=== PATIENT | male | born 2000 | race Caucasian/White ===

== ENCOUNTER 2023-09-19 10:17 | Outpatient (REF) | payer MEDICAID, SELFPAY ==
[2023-09-19 14:10] LABS: MANUAL DIFF FLAG NO
[2023-09-19 14:18] LABS: Basophils Percent Auto 0.7 % (0-2); Eosinophils Absolute Auto 0.2 X10*3/uL (0.0-0.4); Eosinophils Percent Auto 4.4 % (0-4); Hematocrit 46.5 % (42.0-52.0); Hemoglobin 15.2 g/dl (14.0-18.0); Imm Gran Abs Auto 0.02 X10*3/uL (0.00-0.03); Imm Gran Pct Auto 0.4 % (0.0-0.4); Lymphocytes Absolute Auto 1.1 X10*3/uL (1.2-4.9); Lymphocytes Percent Auto 24.7 % (20-40); Mean Corpuscular HGB Conc 32.7 g/dl (31.0-36.0); Mean Corpuscular Volume 94.7 fL (80.0-98.0); Mean Platelet Volume 10.9 fL (9.4-12.4); Monocytes Absolute Auto 0.6 X10*3/uL (0.1-1.2); Monocytes Percent Auto 13.7 % (2-11); Neutrophils Absolute Auto 2.5 x10*3/uL (2.0-8.3); Neutrophils Percent Auto 56.1 % (45-73); Platelet Count 206 X10*3/uL (160-400); Red Blood Count 4.91 X10*6/uL (4.60-5.80); Red Cell Distribution Width 13.4 % (11.0-16.0); White Blood Count 4.5 X10*3/uL (4.8-10.8)
[2023-09-19 14:40] LABS: Alanine Aminotransferase 25 U/L (0-40); Albumin Level 4.6 g/dL (3.5-5.0); Alkaline Phosphatase 62 U/L (39-117); Anion Gap 12 (12-20); Aspartate Amino Transferase 29 U/L (5-37); Bilirubin Total 0.8 mg/dL (0.0-1.0); Blood Urea Nitrogen 15 mg/dL (9-16); Calcium 9.7 mg/dL (8.4-10.2); Carbon Dioxide 28 mmol/L (22-29); Chloride 103 mmol/L (96-108); Cholesterol 154 mg/dL (<200); Estimated Glomerular Filt Rate > 60; Glucose Random 92 mg/dL (60-115); HDL Cholesterol 34 mg/dL (>40); LDL Cholesterol Calculated 85 mg/dL (<100); Potassium 4.2 mmol/L (3.3-5.1); Sodium 139 mmol/L (135-145); Total Protein 7.3 g/dL (6.5-8.0); Triglycerides 176 mg/dL (<150)
== END 2023-09-19 10:18 | disposition home or self-care (01) ==
LOC: HO.CHCLDS 10:17
PROVIDERS: Visit Provider Internal Medicine
DX: E66.3 Overweight (principal)
CPT/HCPCS: 36415; 80053; 80061; 85025

== ENCOUNTER 2024-12-05 11:42 | Outpatient (REF) | payer MEDICAID, SELFPAY ==
--- OUTSIDE RECORDS SUMMARY | 2024-12-05 10:45 | XMS_ITS | Encounter Summary ---
Author Organization [employer] Address [address] [facility] 7 [place] [address] Care Team Providers Care Office Nurse Practitioner Name Role Phone Alin Hewitt MD Primary Care Prov ider Encounter Details Date Type Department Care Team ([facility] st Contact Info) Description 12/05/2024 10:45 AM EDT Office Visit [facility] MED & PEDS [address] [place] [address], [place] [phone] Alin Hewitt MD [address] [place] [address] Visit for annual health examination (Primary Dx); Elevated blood pressure reading Social History Tobacco Use Types Packs/Day Years Used Date Smoking Tobacco: Never Smokeless Tobacco: Never Alcohol Use Standard Drinks/Week Comments Never 0 (1 standard drink = 0.6 oz pur e alcohol) Depression Answer Date Recorded Patient Health Questionnaire-9 Score 0 09/19/2023 Patient Health Questionnaire-9 Score 0 09/19/2023 Last PHQ-9: Questionnaire Data Not on file 0 09/19/2023 Housing Stability Answer Date Recorded What is your housing situation today? I have jesika mesa 09/10/[address] you li ve. Do you have problems with any of the following? None of the above 09/10/2023 Food Insecurity Answer Date Recorded Within the past 12 months, y ou worried that your food would run out before you got money to buy more: Never True 09/10/2023 Within the past 12 months,th e food you bought just didn't last and you didn't have enough money to get more: Never True 03/2023 Transportation Answer Date Recorded In the past 12 months, has l ack of transportation kept you from medical appts, meetings, work or from getting things needed for daily living? No 09/10/2023 Utilities Answer Date Recorded In the past 12 months, has t he electric, gas, oil or water company threatened to shut off services in your home? No 09/10/2023 Depression Answer Date Recorded Patient Health Questionnaire-2 Score 0 09/19/2023 Internet Access Answer Date Recorded Internet Access Q1 Yes 11/12/2023 Internet Access Q2 Not on file 11/12/2023 Sex and Gender Information Value Date Recorded Sex Assigned at Male 01/09/2022 10:37 AM EDT Legal Sex Male 10:37 AM EDT Gender Identity Male 01/09/2022 10:37 AM EDT Sexual Orientation Straight 01/09/2022 10 :37 AM EDT documented as of this encounter Last Filed Vital Signs Vital Sign Reading Time Taken Comments Blood Pressure 145/86 12/05/2024 10:54 AM EDT Pulse 60 12/05/2024 10:54 AM EDT Temperature 37.2 C (99 F) 12/05/2024 10:54 AM EDT Respiratory Rate 20 12/05/2024 10:54 AM EDT Oxygen Saturation - - Inhaled Oxygen Concentration - - Weight 84.8 kg (187 lb) 12/05/2024 10:54 AM EDT Height 174 cm (5' 8.5 ) 12/05/2024 10:54 AM EDT Body Mass Index 28.02 12/05/2024 10:54 AM EDT documented in this encounter Progress Notes * Cecilia Greer MA - 12/05/2024 10:45 AM EDT * Alin López MD - 12/05/2024 10:45 AM EDT Subjective Patient ID: J Luis Blunt is a 24 y.o. male who presents for No chief complaint on file.. HPI Patient was seen on office for a physical examination Review of Systems Constitutional: Negative for chills, fatigue and fever. Respiratory: Negative for cough and shortness of breath. Cardiovascular: Negative for chest pain and palpitations. Objective Physical Exam Constitutional: Appearance: Normal appearance. Cardiovascular: Rate and Rhythm: Normal rate. Heart sounds: No murmur heard. Pulmonary: Effort: Pulmonary effort is normal. No respiratory distress. Breath sounds: No stridor. No wheezing or rhonchi. Abdominal: General: Abdomen is flat. There is no distension. Palpations: There is no mass. Tenderness: There is no abdominal tenderness. Hernia: No hernia is present. Neurological: General: No focal deficit present. Mental Status: He is alert and oriented to person, place, and time. Psychiatric: Mood and Affect: Mood normal. Behavior: Behavior normal. Assessment/Plan Problem List Items Addressed This Visit Visit for annual health examination - Primary Unremarkable, nbew labs will be ordered for further evaluation, incidentally found with elevated blood pressure, will follow up in 1 month Relevant Orders CBC auto differential Comprehensive Metabolic Panel Lipid Panel, Standard TSH W/Reflex to FT4 Chlamydia/N. Gonorrhoeae RNA, TMA, Vaginal Syphilis Screen Elevated blood pressure reading Will order blood pressure monitor, keep a low sodium diet and exercise as tolerated, follow up in 1month documented in this encounter Miscellaneous Notes * Assessment & Plan Note - Alin López MD - 12/05/2024 12:05 PM EDTAssociated Problem(s): Visit for annual health examination Unremarkable, nbew labs will be ordered for further evaluation, incidentally found with elevated blood pressure, will follow up in 1 month * Assessment & Plan Note - Alin López MD - 12/05/2024 12:04 PM EDTAssociated Problem(s): Elevated blood pressure reading Will order blood pressure monitor, keep a low sodium diet and exercise as tolerated, follow up in 1month documented in this encounter Plan of Treatment Scheduled Orders Name Type Priority Associated Diagnoses Orde r Schedule CBC auto differential Lab Routine Visit for annual health examination Expected: 12/05/2024 (Approximate), Expires: 12/05/2025 Comprehensive Metabolic Panel Lab Routine Visit for annual health examination Expected: 12/05/2024 (Approximate), Expires: 12/05/2025 Lipid Panel, Standard Lab Routine Visit for annual health examination Expected: 12/05/2024 (Approximate), Expires: 12/05/2025 TSH W/Reflex to FT4 Lab Routine Visit for annual health examination Expected: 12/05/2024 (Approximate), Expires: 12/05/2025 Chlamydia/N. Gonorrhoeae RNA, TMA, Vaginal Microbiology Routine Visit for annual health examination Ordered: 12/05/2024 Syphilis Screen Lab Routine Visit for annual health examination Expected: 12/05/2024, Expires: 12/05/2025 documented as of this encounter Visit Diagnoses Diagnosis Visit for annual health examination- Primary Elevated blood pressure reading Elevated blood pressure reading without diagnosis of hypertension documented in this encounter Additional Health Concerns Assessment Noted Time PHQ-9 Depression Total Score: 0 09/19/19 24 9:26 AM EDT documented as of this encounter Care Teams Office Nurse Practitioner Relationship Specialty Start Date End Date Alin Hewitt MD [address] [place] [id number] PCP - General Internal Medicine 06/07/20 documented as of this encounter
--- OUTSIDE RECORDS SUMMARY | 2024-12-05 13:37 | XMS_ITS | Encounter Summary ---
Author Organization [facility] Address [address] [place] [address] Care Team Providers Care Technology Risk Intern Name Role Phone Misbah Segal MD Primary Care Provider Gerda Castellanos MD Primary Care Pr ovider Unavailable [facility], Pcp Primary Care Provider Unavailabl e Encounter Details Date Type Department Care Team Description [facility] Medical Records [address] [place] [id number] Abstract, Provider Social History Tobacco Use Types Packs/Day Years Used Date Smoking Tobacco: Never Smokeless Tobacco: Never Alcohol Use Standard Drinks/Week Comments Not Asked 0 (1 standard drink = 0.6 oz pur e alcohol) Sex Assigned at Date Recorded Not on file documented as of this encounter Plan of Treatment Not on file documented as of this encounter Visit Diagnoses Not on filedocumented in this encounter Care Teams Technology Risk Intern Relationship Specialty Start Date End Date Misbah Segal MD PCP - General Pediatrics 05/27/15 12/03/17 Gerda Gonzalez MD PCP - General Pediatrics 12/04/17 05/27/18 [facility], Pcp PCP - General Internal Medicine 05/28/18 documented as of this encounter
--- OUTSIDE RECORDS SUMMARY | 2024-12-05 13:37 | XMS_ITS | Clinical Summary ---
Author Organization [employer] Address [address] [facility] [address] [place] [address] Care Team Providers Care Bereavement Program Coordinator Name Role Phone Alin Hewitt MD Primary Care Prov ider Allergies No known active allergies Medications Blood Pressure kit 1 kit Once per day. 1 kit 12/05/2024 Active Active Problems Problem Noted Date Diagnosed Date Elevated blood pressure reading 12/05/2024 Assessment & Plan (12/05/2024 12:04 PM EDT): Will order blood pressure monitor, keep a low sodium diet and exercise as tolerated, follow up in 1 month Orthostatic dizziness 10/09/2023 Assessment & Plan (10/09/2023 3:45 PM EDT): Josue seen at er 2 weeks after presenting with a episode of fainting/dizziness, workup was negative, he denied further episode, most likely related to lack of hydration and heat. Visit for annual health examination 09/19/2023 Assessment & Plan (12/05/2024 12:05 PM EDT): Unremarkable, nbew labs will be ordered for further evaluation, incidentally found with elevated blood pressure, will follow up in 1 month Assessment & Plan (09/19/2023 10:25 AM EDT): Physical examination was unremarkable, no heart murmurs, lungs were clear, no thyroid/neck lymphadenopathy. Skin examination done no suspected melanoma lesions Encounters Date Type Department Care Team Description 12/05/2024 10:45 AM EDT Office Visit [facility] MED & PEDS [address] [place] [address] Alin Hewitt MD Visit for annual health examination (Primary Dx); Elevated blood pressure reading 12/05/2024 Travel 11/28/2024 Travel 11/27/2024 Patient Outreach [facility] MEDICINE [address] [place] [address] Alin Hewitt MD Pre-visit Planning (Pre visit planning LVM ) from Last 3 Months Immunizations Immunization Administration Dates Next Due BCG 2001 DTaP 09/25/2006, 2,2001,09/11 HPV 9-Valent 09/06/2015 HPV, Quadrivalent 02/22/2015,04/22/2014 Hep B, Adolescent or Pediatric 09/25/2006,2006,2001 IPV 09/06/2015, 3,01/16/2002,11/12,2001 Influenza injectable quadriv alent preservative free 01/25/2023,01/17/2018 Influenza, IIV3, injectable 02/22/2015, 5 Influenza, live, intranasal 12/05/2012 Influenza, seasonal, injecta ble, preservative free 02/22/2015,04/22/2014 MMR 09/25/2006,05/19/2004 Measles 07/23/2002 Meningococcal B, Recombinant 07/25/2018 Meningococcal MCV4P ACYW-135 09/06/2015 Novel [id number], preservative-free 02/18/2009 PPD Test 08/12/2021 Tdap 09/06/2015 Varicella 09/25/2006,07/20/2006 Social History Tobacco Use Types Packs/Day Years Used Date Smoking Tobacco: Never Smokeless Tobacco: Never Tobacco Cessation:Counseling Given: Not Answered Alcohol Use Standard Drinks/Week Comments Never 0 [...] Orientation Straight 01/09/2022 10 :37 AM EDT Last Filed Vital Signs Vital Sign Reading [...] Mass Index 28.02 12/05/2024 10:54 AM EDT Plan of Treatment Health Maintenance Due Date Last Done Comments Alcohol/Substance Use Screening 2013 Family Planning (PISQ) 2016 Meningococcal B Vaccine (2 of 2 - Trumenba SCDM 2-dose series) 01/25/2019 07/25/2018 Pneumococcal Vaccine: Pediatrics (0 to 5 Years) and At-Risk Patients (6 to 49) Years (1 of 2 - PCV) 2020 Chlamydia and Gonorrhea Screening 09/23/2022 09/23/2021, 06/10/2020 SDOH Screening 09/09/2024 09/10/2023 Depression Screening 09/18/2024 09/19/2023, 09/19/19 24 Tobacco Screening 09/18/2024 09/19/2023 COVID-19 Vaccine ( season) 2024 05/03/2021, 08/04/2020, 07/14/2020 Influenza Vaccine (#1) 2024 3, 01/17/2018, 02/22/2015, Additional history exists DTaP/Tdap/Td Vaccines (6 - Td or Tdap) 09/05/2025 09/06/2015, 09/25/2006, 01/16/2002, Additional history exists Disability Screening 11/28/2025 11/28/2024 Zoster Vaccines (1 of 2) 07/05/2051 RSV Patients and Patients Aged 60 years or older (1 - 1-dose 75+ series) 2076 Hepatitis B Vaccines Completed 09/25/2006, 07/20/2006, 2001 HPV Vaccines Completed 09/06/2015, 02/09, 04/22/2014 IPV Vaccines Completed 09/06/2015, 02/09, 01/16/2002, Additional history exists Meningococcal Vaccine Aged Out 09/06/2015 No nuris phil eligible based on patient's age to complete this topic HIV Screening Completed 06/10/2020 Hepatitis C Screening Completed 09/23/2021 HIB Vaccines Aged Out No longer eligi ble based on patient's age to complete this topic Hepatitis A Vaccines Aged Out No long er eligible based on patient's age to complete this topic RSV under 20 months Aged Out No longe r eligible based on patient's age to complete this topic Rotavirus Vaccines Aged Out No longer eligible based on patient's age to complete this topic Procedures Procedure Name Priority Date/Time Associated Diagnosis Comments ZZZ HISTORICAL HEPATITIS C AB W/REFL TO HCV RNA, QN, PCR Routine 09/23/2021 9:52 AM EDT ZZZ HISTORICAL CHLAMYDIA/N. GONORRHOEAE RNA, TMA, UROGENITAL Routine 09/23/2021 9:52 AM EDT HIV 1/2 ANTIGEN/ANTIBODY, FOURTH GENERATION W/RFL Routine 06/10/2020 10:07 AM EDT from Last 3 Months or Most Recently Relevant to Health Maintenance Results * HEPATITIS C AB W/REFL TO HCV RNA, QN, PCR (09/23/2021 9:52 AM EDT) HEPATITIS C ANTIBODY NON-REACT MARTIN NON-REACT MARTIN [facility] INDEX 0.09 <1.00 [facility] Comment: HCV antibody was non-reactive. There is no laboratory evidence of HCV infection. In most cases, no further action is required. However, if recent HCV exposure is suspected, a test for HCV RNA (test code 95519) is suggested. For additional information please refer to http://[employer] Camp.[employer]/faq/VTG51z6 (This link is being provided for informational/ educational purposes only.) 09/23/2021 9:52 AM EDT Alin López MD HISTORICAL/NON ORD ERABLE LABS Final Result [facility] [address] * CHLAMYDIA/N. GONORRHOEAE RNA, TMA, UROGENITAL (09/23/2021 9:52 AM EDT) Chlamydia trachomatis RNA, TMA, Urogenital NOT DETECTED NOT DETECTED [facility] COMMENT SEE COMMENT [facility] Comment: The analytical performance characteristics of this assay, when used to test SurePath(TM) specimens have been determined by [employer]. The modifications have not been cleared or approved by the FDA. This assay has been validated pursuant to the CLIA regulations and is used for clinical purposes. For additional information, please refer to https://education.[employer] Company.[employer]X/faq/DWM216 (This link is being provided for information/ educational purposes only.) Neisseria gonorrhoeae RNA, TMA, Urogenital NOT DETECTED NOT DETECTED [facility] 09/23/2021 9:52 AM EDT Alin López MD HISTORICAL/NON ORD ERABLE LABS Final Result Performing Organization Address [facility] Co de Phone Number [facility] [address] * HIV 1/2 ANTIGEN/ANTIBODY,FOURTH GENERATION W/RFL (06/10/2020 10:07 AM EDT) HIV-1/2 ANTIGEN AND ANTIBODIES, 4TH GENERATION W/ REFLEX NON-REACT MARTIN NON-REACT MARTIN [facility] Comment: HIV-1 antigen and HIV-1/HIV-2 antibodies were not detected. There is no laboratory evidence of HIV infection. PLEASE NOTE: This information has been disclosed to you from records whose confidentiality may be protected by state law. If your state requires such protection, then the state law prohibits you from making any further disclosure of the information without the specific written consent of the person to whom it pertains, or as otherwise permitted by law. A general authorization for the release of medical or other information is NOT sufficient for this purpose. For additional information please refer to http://Data Camp.[email or web address]/faq/MRU815 (This link is being provided for informational/ educational purposes only.) The performance of this assay has not been clinically validated in patients less than 2 years old. 06/10/2020 10:0 7 AM EDT Alin López MD LAB BLOOD ORDERABL ES Final Result Performing Organization Address [facility] Co de Phone Number [facility] [address] from Last 3 Months or Most Recently Relevant to Health Maintenance Insurance [facility] C[facility] Care Teams Bereavement Program Coordinator Relationship Specialty Start Date End Date Alin Hewitt MD [address] [place] [id number] PCP - General Internal Medicine 06/07/20
--- OUTSIDE RECORDS SUMMARY | 2024-12-05 13:37 | XMS_ITS | Clinical Summary ---
Author Organization [facility] Address [address] [place] [address] Care Team Providers Care Water Vessel Captain Name Role Phone Community, Pcp Primary Care Provider Unavailabl e Allergies Active Allergy Reactions Severity Noted Date Comments Pollen 07/19/2017 Shrimp Itching/Pruritus 06/29/2015 seafood Medications Medication Sig Dispensed Refills Start Date End Date Status ibuprofen (ADVIL,MOTRIN) 600 MG tablet Take 600 mg by mouth every 6 hours as needed. 0 Active Adapalene-Benzoy l Peroxide (EPIDUO) 0.1-2.5 % Gel Apply 1 Squirt topically daily. Apply pea size amount Qday 45 g 4 01/29/2017 Active adapalene (DIFFERIN) 0.1 % gel Apply pea size amount nightly. 45 g 4 02/08/2017 Active Benzoyl Peroxide 2.5 % Liquid Apply 1 Squirt topically every morning. 1 Bottle 4 02/08/2017 Active diphenhydrAMINE (BENADRYL ALLERGY) 25 MG capsule Take 1 Cap by mouth every 6 hours as needed for Itching for up to 10 days. 20 capsule 0 11/06/2017 Active Sodium Fluoride 2.2 (1 F) MG Tab Take 1 Tab by mouth daily. 0 6 Discontinued Active Problems Problem Noted Date Myopia of both eyes with astigmatism Overview: 5-18 wears glasses yrly optometry Last Assessment & Plan: 5-18 wears glasses yrly optometry Food allergy 07/18/2016 Overview: At 7y/o face swollen seen in er at [facility] No allergy ref 5-17 ref to allergy today 5-18 get notes Last Assessment & Plan: 5-17 ref to allergy today 07-27 get notes Syncope, vasovagal 12/28/2015 Overview: 10- cardiology appt ECG borderline prolonged QTc with QTc of 453 milliseconds No SBE prophylaxis /no restrictions in activity Will f/u exercise stress test/passed per mom If needs meds that could prolong QTc an ECG should be performed after starting med for a few days to reassess QTc and ensure no further prolongation 07-26 will obtain last letter from cardiology 09-25 exercise stress test /above average exercise endurance/nl exercise tolerance NO prolongation of QTc with activity/pt asymptomatic thru study 02/25 Epidose with a nose bleed 06/27 Episode with seeing bllod in toilet after a BM then took a hot shower Last Assessment & Plan: 10- cardiology appt ECG borderline prolonged QTc with QTc of 453 milliseconds No SBE prophylaxis /no restrictions in activity Will f/u exercise stress test/passed per mom If needs meds that could prolong QTc an ECG should be performed after starting med for a few days to reassess QTc and ensure no further prolongation 07-26 will obtain last letter from cardiology 09-25 exercise stress test /above average exercise endurance/nl exercise tolerance NO prolongation of QTc with activity/pt asymptomatic thru study 02/25 Epidose with a nose bleed 06/27 Episode with seeing bllod in toilet after a BM then took a hot shower Seasonal asthma 06/01/2015 Overview: 12/05/12 : in winter. Saw Specialist ( unknown) and was told OK. No need for meds. No recurrence . Occassional cough. No wheezing. No exercise induced cough or wheeze 5-17 no proair since 2012 Last Assessment & Plan: 5-17 no proair since 2012 Resolved Problems Problem Noted Date Resolved Date GERD (gastroesophageal reflux disease) 6 06/29/2015 Overview: 01/29/13- Ompeprazole Diet counseling Immunizations Name Administration Dates Next Due BCG Vaccine 2001 DTaP 09/25/2006, 2,2001, 002 Gardasil 9 (Hpv) 09/06/2015 HPV (Gardasil) 02/22/2015,04/22/2014 Hepatitis B-3 Dose (<19yrs) 09/25/2006, 7,2001 Influenza (> 6 Months) 02/22/2015,04/22/2014 Influenza FluMist 12/05/2012 Influenza H1N1 Pandemic Flu Vaccine 02/18/2009 MMR (Joozlsf-Wlvqh-Pnkqmpl) 09/25/2006, 5 Measles 07/23/2002 Meningococcal (Menactra) 09/06/2015 Polio (IPV) 09/06/2015, 3,01/16/2002, 002,2001 Tdap 09/06/2015 Varicella 09/25/2006,07/20/2006 Family History Medical History Relation Name Comments No Known Problems Aunt No Known Problems Brother 1 Other Brother 2 2010 ASD Cholesterol Level Father HTN, Obesi ty No Known Problems Maternal Grandfather No Known Problems Maternal Grandmother Cholesterol Level Mother HTN, Obesi ty, GERD No Known Problems Other No Known Problems Paternal Grandfather No Known Problems Paternal Grandmother No Known Problems Sister No Known Problems Uncle Blindness Negative Hx Cataract Negative Hx Glaucoma Negative Hx Macular Degeneration Negative Hx Strabismus Negative Hx Relation Name Status Comments Aunt Brother 1 Alive zarina 7-10 A SD Brother 2 Father Alive christianne 12-17-73 r [employer] Maternal Grandfather Maternal Grandmother Mother Alive cynthia Bird eto 07-27-76 hypertension/sales Other Paternal Grandfather Paternal Grandmother Sister Uncle Social History Tobacco Use Types Packs/Day Years Used Date Smoking Tobacco: Never Smokeless Tobacco: Never Alcohol Use Standard Drinks/Week Comments Not Asked 0 (1 standard drink = 0.6 oz pur e alcohol) Sex Assigned at Date Recorded Not on file Last Filed Vital Signs Vital Sign Reading Time Taken Comments Blood Pressure 118/78 07/19/2017 9:52 AM EDT Pulse 80 11/06/2017 3:52 PM EDT Temperature 36.6 C (97.8 F) 11/06/2017 3:52 PM EDT Respiratory Rate 16 11/06/2017 3:52 PM EDT Oxygen Saturation - - Inhaled Oxygen Concentration - - Weight 72.4 kg (159 lb 9.6 oz) 11/06/2017 3:52 P M EDT Height 172.7 cm (5' 8 ) 11/06/2017 3:52 PM EDT Body Mass Index 24.27 11/06/2017 3:52 PM EDT Plan of Treatment Health Maintenance Due Date Last Done Comments Covid-19 Vaccine (#1) 01/03/2002 GONORRHEA & CHLAMYDIA SCREENING 07/19/2018 8 TOBACCO CHECK/ADVISE 07/05/2019 BASELINE HEALTH EXAM 18-39 07/04/202007/19, 07/18/2016, 07/18/2016, Additional history exists CHOLESTEROL SCREENING 2021 06/13/2017, 017 BMI CHECK/ADVISE 03/12/2024 07/19/2017, 12/2017, 07/18/2016, Additional history exists DEPRESSION SCREENING/FOLLOWUP 03/12/2024 SOCIAL NEEDS SCREENING 03/12/2024 INFLUENZA (#1) 2024 02/22/2015, 04/12, 12/05/2012 DTAP/TDAP/TD (6 - Td or Tdap) 09/05/2025, 09/25/2006, 01/16/2002, Additional history exists PNEUMOCOCCAL VACCINE FOR HIG H RISK PATIENTS (#1) 2066 HUMAN PAPILLOMAVIRUS (HPV) Completed 09/05, 02/22/2015, 04/22/2014 Care Teams Water Vessel Captain Relationship Specialty Start Date End Date [facility], Pcp PCP - General Internal Medicine 05/28/18
--- OUTSIDE RECORDS SUMMARY | 2024-12-05 13:37 | XMS_ITS | Encounter Summary ---
Author Organization [employer] Address [address] [facility] [address] [place] [address] Care Team Providers Care Dot Etcher Apprentice Name Role Phone Alin Hewitt MD Primary Care Prov ider Encounter Details Date Type Department Care Team (Latest Contact Info) Description 12/05/2024 Travel Social History Tobacco Use Types Packs/Day Years [...] AM EDT documented as of this encounter Plan of Treatment Not on file documented as of this encounter Visit Diagnoses Not on filedocumented in this encounter Additional Health Concerns Assessment Noted Time PHQ-9 Depression Total Score: 0 09/19/19 24 9:26 AM EDT documented as of this encounter Care Teams Dot Etcher Apprentice Relationship Specialty Start Date End Date Alin Hewitt MD [address] [place] [address] PCP - General Internal Medicine 06/07/20 documented as of this encounter
--- OUTSIDE RECORDS SUMMARY | 2024-12-05 13:37 | XMS_ITS | Encounter Summary ---
Author Organization [facility] Address [address] [place] [address] Care Team Providers Care Door Furring Installer Name Role Phone Gerda Gonzalez MD Primary Care Pr ovider Unavailable [facility] Primary Care Provider Unavailabl e Encounter Details Date Type Department Care Team Description 01/07/2018 Release of Information Medical Records [address] [place] [id number] Abstract, Provider Social History Tobacco Use Types [...] on filedocumented in this encounter Care Teams Door Furring Installer Relationship Specialty Start Date End Date Gerda Gonzalez MD PCP - General Pediatrics 12/04/17 05/27/18 [facility] PCP - General Internal Medicine 05/28/18 documented as of this encounter
[2024-12-05 14:24] LABS: MANUAL DIFF FLAG NO
[2024-12-05 14:33] LABS: Hematocrit 44.6 % (42.0-52.0); Hemoglobin 14.9 g/dl (14.0-18.0); Imm Gran Abs Auto 0.03 X10*3/uL (0.00-0.03); Imm Gran Pct Auto 0.7 % (0.0-0.4); Lymphocytes Absolute Auto 1.1 X10*3/uL (1.2-4.9); Mean Corpuscular HGB Conc 33.4 g/dl (31.0-36.0); Mean Corpuscular Hemoglobin 31.2 pg (27.0-33.0); Mean Corpuscular Volume 93.3 fL (80.0-98.0); NRBC Abs Auto 0.000 X10*3/uL (0.0-0.012); NRBC Pct Auto 0.0 /100WBC (0.0-0.2); Platelet Count 202 X10*3/uL (160-400); Red Blood Count 4.78 X10*6/uL (4.60-5.80); White Blood Count 4.6 X10*3/uL (4.8-10.8)
[2024-12-05 14:57] LABS: Alanine Aminotransferase 29 U/L (0-40); Albumin Level 4.7 g/dL (3.5-5.0); Alkaline Phosphatase 83 U/L (39-117); Anion Gap 9 (12-20); Aspartate Amino Transferase 35 U/L (5-37); Blood Urea Nitrogen 13 mg/dL (9-16); Calcium 9.2 mg/dL (8.4-10.2); Carbon Dioxide 30 mmol/L (22-29); Chloride 105 mmol/L (96-108); Cholesterol 136 mg/dL (<200); Estimated Glomerular Filt Rate > 60; HDL Cholesterol 37 mg/dL (>40); Potassium 4.0 mmol/L (3.3-5.1); Sodium 140 mmol/L (135-145); Total Protein 7.2 g/dL (6.5-8.0); Triglycerides 137 mg/dL (<150)
[2024-12-08 04:05] LABS: Syphilis Screen Nonreactive (Nonreactive)
== END 2024-12-05 11:43 | disposition home or self-care (01) ==
LOC: HO.CHCLDS 11:42
PROVIDERS: PCP Internal Medicine; Visit Provider Internal Medicine
DX: Z00.00 Encounter for general adult medical examination without abnormal findings (principal)
CPT/HCPCS: 36415; 80053; 80061; 84443; 85025; 86780